=== PATIENT | female | born 1990 | race Two or more races ===

== ENCOUNTER 2021-11-30 12:06 | Emergency (ER) | payer OTHER, SELFPAY ==
[2021-11-30 12:13] VITALS: PULSE 68; O2SAT 94
[2021-11-30 12:21] VITALS: BP 102/51; PULSE 70; RESP 18; TEMP 36.6; O2SAT 98; BMI 38.9
--- NOTE | 2021-11-30 14:18 | ED.BACK ---
HPI - Back Pain/Injury General Chief Complaint: Back Pain/Injury Stated Complaint: TAILBONE PAIN, NO TRAUMA Time Seen by Provider: 11/30/21 14:18 History of Present Illness HPI Narrative: Patient with history of coccyx fracture 2 years ago has had continuing pain and some exacerbations where pain becomes severe Over past several days the pain has come severe in the coccyx area with no new injury and it is similar to prior episode, there is no numbness weakness, no radiation of pain no tingling no change to bowel or bladder Related Data Previous Rx's Medication Instructions Recorded Donut pillow #1 ea 11/30/21 acetaminophen 500 mg tablet 1,000 mg PO QID PRN pain #30 tabs 11/30/21 diazepam 5 mg tablet (Valium) 5 mg PO BID PRN muscle spasm #14 11/30/21 tabs docusate sodium 100 mg capsule 100 mg PO BID PRN Stool softener 11/30/21 (Colace) #20 caps ibuprofen 600 mg tablet 600 mg PO Q6H PRN pain #20 tabs 11/30/21 lidocaine 5 % topical patch 1 patch topical DAILY Back pain 11/30/21 #15 ea oxycodone 5 mg tablet 5 mg PO Q6H PRN pain #14 tabs 11/30/21 Allergies Allergy/AdvReac Type Severity Reaction Status Date / Time No Known Allergies Allergy Verified 11/30/21 14:48 Review of Systems Review of Systems: Positive for back pain Negatives are no fever no chills no dizziness no weakness no headache no neck pain no chest pain no abdominal pain no nausea or vomiting no change to bowel or bladder no dysuria no frequency no incontinence no constipation no skin rashes no numbness no weakness no tingling no radiation of pain Yes all other systems are reviewed and are negative [facility] Past Medical History Source: nursing notes reviewed Social History Social History Advance Directives: No Advance Directives Information Provided: No Physical Exam Vital Signs: Vital Signs: Last Vital Signs Temp 98 F 11/30/21 12:21 Pulse 68 11/30/21 15:29 Resp 18 11/30/21 15:29 BP 114/74 11/30/21 15:29 Pulse Ox 97 11/30/21 15:29 O2 Del Method 11/30/21 15:29 BMI result Body Mass Index 38.9 General appearance no distress Head is normocephalic atraumatic Neck is supple Chest clear to auscultation bilateral The abdomen soft nontender The back did have coccygeal tenderness, the skin was normal there was no abscess no redness no warmth, there was no ecchymosis, there was no other tenderness no skin rash Extremities full range of motion x4 Neuro gait and balance are normal, motor is 5/5 x4 and sensation is intact and symmetrical Course Course Course Narrative: Patient with low back pain and coccygeal pain with no neurologic deficit no injury no change to bowel or bladder no evidence of skin infection had x-rays of lumbar spine and coccyx with no acute findings and was discharged with analgesics and to follow with primary care Discharge Plan Discharge Clinical Impression: Back pain Patient Disposition: Home, Self-Care Additional Instructions: Follow with [facility] and your primary doctor Use medications if needed as directed Use Colace as a stool softener Use donut pillow as it might help with sitting down Return any time if worse Prescriptions: New diazepam [Valium] 5 mg tablet 5 mg PO BID PRN (Reason: muscle spasm) Qty: 14 0RF Rx Instructions: This medication causes drowsiness so no driving for 8 hours after taking oxycodone 5 mg tablet 5 mg PO Q6H PRN (Reason: pain) Qty: 14 0RF Rx Instructions: Partial Fill upon patient request.Narcotic no driving for 6 hours after taking this medication ibuprofen 600 mg tablet 600 mg PO Q6H PRN (Reason: pain) Qty: 20 0RF lidocaine 5 % adhesive patch,medicated 1 patch topical DAILY Qty: 15 0RF Rx Instructions: leave on most painful area for up to 12 hrs acetaminophen 500 mg tablet 1,000 mg PO QID PRN (Reason: pain) Qty: 30 0RF docusate sodium [Colace] 100 mg capsule 100 mg PO BID PRN (Reason: Stool softener) Qty: 20 0RF (DME) Donut pillow Misc See Rx Instructions .Route Qty: 1 0RF Rx Instructions: As directed Interventions: ED Discharge Assessment Last Done: 11/30/21 16:20 Discharge Date/Time: 11/30/21 16:20
[2021-11-30 15:29] VITALS: BP 114/74; PULSE 68; RESP 18; O2SAT 97
[2021-11-30] MEDS: Ketorolac Tromethamine 30 MG/ML VIAL IM (15:30)
[2021-11-30] MEDS: Acetaminophen 325 MG TABLET 975 MG PO (15:30)
== END 2021-11-30 16:20 | disposition home or self-care (01) ==
PROVIDERS: Emergency Provider Emergency Medicine
DX: M53.3 Sacrococcygeal disorders, not elsewhere classified (principal)
CPT/HCPCS: 96372; 99283; 99284; J1885